=== PATIENT | male | born 1940 | race Caucasian/White ===

== ENCOUNTER 2020-05-30 10:35 | Emergency (ER) | payer MEDICARE, OTHER ==
[~2020-05-30] VITALS: Ht 175.3 cm; Wt 81.2 kg
[~2020-05-30 10:35] MED LIST: ACETAMINOPHEN500 MG PO; ADVAIR 250-501 EACH IH; ADVAIR 250-501 EACH INH; ALBUTEROL2.5 MG/0.5 INH; ALEVE220 MG PO; ALIMTA IV; ANTACID GELATI1 EACH PO; ANUSOL-HC25 MG PR; ASPIR-LOW81 MG PO; ASPIRIN325 MG PO; ATIVAN1 MG PO; ATROVENT HFA12.9 GM INH; BENEFIBER1 EAC1 PO; CALCIUM-MAGNES1 EAC1 PO; CARBOPLATIN150 MG IV; COQ-10100 MG PO; COUMADIN PO; DECADRON4 MG PO; ECHINACEA EXTR125 MG PO; EMEND150 MG IV; EPIDIOLEX100 MG/1 M PO; FENOFIBRATE160 MG PO; FISH OIL 1,2001 EAC1 PO; FISH OIL500 MG PO; FLUTICASONE PRO16 GM NS; FOLIC ACID1 MG PO; GARCINIA CAMBO1 EACH PO; GLUCOSAMINE CH1 EACH PO; GLUCOSAMINE H1500 MG PO; GREEN COFFEE B400 MG PO; KEYTRUDA100 MG/4 M IV; LEVITRA20 MG PO; LOSARTAN-HCTZ1 EAC1 PO; LOVENOX150 MG SUB-Q; MAGNESIUM400 MG PO; METOPROLOL SUC100 MG PO; MILK THISTLE140 M1 PO; MIRALAX17 GM PO; MS CONTIN15 MG PO; NAPROSYN250 MG PO; NORCO 5-325 TA1 EACH PO; OMEPRAZOLE20 MG PO; ONDANSETRO8 MG/50 M2 IV; ONDANSETRON ODT8 MG PO; OXYCODON-ACETA1 EAC2 PO; OXYCODONE HCL5 MG PO; POTASSIUM CHLO10 ME1 PO; PREDNISONE10 MG PO; PROAIR HFA8.5 GM INH; PROMETHAZINE HC25 M1 PO; RASPBERRY MC; SPIRIVA18 MCG IH; SPIRIVA18 MCG INH; ST. JOHN'S WOR300 MG PO; TAMIFLU75 MG PO; TURMERIC500 MG PO; TYLENOL325 MG PO; ULTRAM50 MG PO; VITAMIN E400 UNI5 PO; WARFARIN SODIUM5 MG PO; XARELTO10 MG PO
[2020-05-30] MEDS ORDERED: LOVENOX80 MG/0.8 SUB-Q (14:45)
[2020-05-30] MEDS ORDERED: LOVENOX120 MG/0.8 SUB-Q (14:51)
== END 2020-05-30 14:56 | disposition home or self-care (01) ==
LOC: ED 10:35
DX: T81.31XA Disruption of external operation (surgical) wound, not elsewhere classified, initial encounter (principal); I82.622 Acute embolism and thrombosis of deep veins of left upper extremity; I10 Essential (primary) hypertension; J44.9 Chronic obstructive pulmonary disease, unspecified; Z85.118 Personal history of other malignant neoplasm of bronchus and lung; Z79.899 Other long term (current) drug therapy; Z79.82 Long term (current) use of aspirin
CPT/HCPCS: 71045; 93971; 96372; 99284-25; J1650

== ENCOUNTER 2020-05-31 11:28 | Emergency (ER) | payer MEDICARE, OTHER ==
[~2020-05-31] VITALS: Ht 175.3 cm; Wt 81.2 kg
[~2020-05-31 11:28] MED LIST changes: +LOVENOX120 MG/0.8 SUB-Q; +LOVENOX80 MG/0.8 SUB-Q
--- OUTSIDE RECORDS SUMMARY | 2020-05-31 11:32 | XMS ---
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 Gamal has no Care Guidelines for this patient. Norma VISIT COUNT (12 MO.) [address] [facility] TOTAL 2 NOTE: Visits indicate total known visits. ED/C VISIT TRACKING (12 MO.) 05/31/2020 11:[address] [facility] [place] TYPE: Emergency COMPLAINT: - DRESSING CHANGE 05/30/2020 10:36 [facility] [place] TYPE: Emergency COMPLAINT: - POST OP PROBLEM INPATIENT VISIT TRACKING (12 MO.) No inpatient visits to display in this time frame [id number]
== END 2020-05-31 11:46 | disposition home or self-care (01) ==
LOC: ED 11:28
DX: Z76.0 Encounter for issue of repeat prescription (principal)

== ENCOUNTER 2020-06-01 11:39 | Emergency (ER) | payer MEDICARE, OTHER ==
[~2020-06-01] VITALS: Ht 175.3 cm; Wt 81.2 kg
--- OUTSIDE RECORDS SUMMARY | 2020-06-01 11:42 | XMS ---
PreManage Notification: JANY SCANLON Security Breaker Hand Events No recent Security Events currently on file CRITERIA MET - [facility] - 2 Visits in 30 Days CARE PROVIDERS There are no care providers on record at this time. Gamal has no Care Guidelines for this patient. Norma VISIT COUNT (12 MO.) [address] [facility] TOTAL 3 NOTE: Visits indicate total known visits. ED/C VISIT TRACKING (12 MO.) 06/01/2020 11:40 [facility] [place] TYPE: Emergency COMPLAINT: - MEDICATION REFILL 05/31/2020 11:29 [facility] [place] TYPE: Emergency COMPLAINT: - DRESSING CHANGE 05/30/2020 10:36 [facility] [place] TYPE: Emergency COMPLAINT: - POST OP PROBLEM INPATIENT VISIT TRACKING (12 MO.) No inpatient visits to display in this time frame [id number]
== END 2020-06-01 11:56 | disposition home or self-care (01) ==
LOC: ED 11:39
DX: Z76.0 Encounter for issue of repeat prescription (principal)

== ENCOUNTER 2020-09-06 10:18 | Emergency (ER) | payer MEDICARE, OTHER ==
[~2020-09-06] VITALS: Ht 177.8 cm; Wt 80.7 kg
--- OUTSIDE RECORDS SUMMARY | 2020-09-06 11:50 | XMS ---
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 Norma VISIT COUNT (12 MO.) 4 [facility] Thompson TOTAL 4 NOTE: Visits indicate total known visits. 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 - Personal history of other malignant neoplasm of bronchus and lung - Chronic obstructive pulmonary disease, unspecified - Acute embolism and thrombosis of deep veins of left upper extremity - 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
[2020-09-06] MEDS ORDERED: CEPHALEXIN500 M1 PO (14:19)
== END 2020-09-06 14:35 | disposition home or self-care (01) ==
LOC: ED 10:18
DX: L03.114 Cellulitis of left upper limb (principal); I82.622 Acute embolism and thrombosis of deep veins of left upper extremity; I10 Essential (primary) hypertension; J43.9 Emphysema, unspecified; Z87.891 Personal history of nicotine dependence; Z79.899 Other long term (current) drug therapy; Z79.82 Long term (current) use of aspirin; Z85.118 Personal history of other malignant neoplasm of bronchus and lung
CPT/HCPCS: 80053; 83605; 85025; 93971; 96365; 96366; 99284-25; J0696

== ENCOUNTER 2020-09-30 06:25 | Day surgery (SDC) | payer MEDICARE, OTHER ==
[~2020-09-30] VITALS: Ht 177.8 cm; Wt 77.7 kg
[~2020-09-30 06:25] MED LIST changes: +CEPHALEXIN500 M1 PO; +FISH OIL + D31 EACH PO; +TURMERIC500 M2 PO
--- NOTE | 2020-09-30 08:47 | NUR ---
09/30/20 0847 Elizabeth,Prisca 0828 PT ARRIVED TO PACU ON 10L VIA MASK, RESP EVEN AND UNLABORED WITH ORAL AND NASAL AIRWAY IN MOUTH. VSS. MODERN DANCER AT BEDSIDE AND BP MEDICATION GIVEN. 0831 O2 DECREASED TO 6L. 0837 X-RAY AT BEDSIDE. 0842 PT WAKES TO TACTILE STIMULI AND AIRWAYS REMOVED. PT REORIENTED TO PACU AND EASILY FALLS BACK TO SLEEP.
--- NOTE | 2020-09-30 10:14 | NUR ---
PT ALERT, ORIENTED AND SUPPORTED BY HIS OSIRIS. PT HAS QUIET, RASPY VOICE, BUT ABLE TO UNDERSTAND EASILY. PT WOULD LIKE TO VISIT WITH DR HERNÁNDEZ INFORMED PT HE WILL BE IN BEFORE. PT AND OSIRIS SEEM SATISFIED. PT APPEARS SOMEWHAT ANXIOUS, GAVE ENCOURAGEMENT, PT ALLOWED ME TO PRAY FOR HIM, WILL FOLLOW NEEDED
--- NOTE | 2020-09-30 10:48 | OR ---
[facility] [address], [place] [address] Signed DATE OF OPERATION: 09/30/2020 SURGEON: Jumana Hernández MD PREOPERATIVE DIAGNOSES: Metastatic adenocarcinoma of the lung, left neck and perihilar adenopathy, need for central venous access for chemotherapy. POSTOPERATIVE DIAGNOSES: Metastatic adenocarcinoma of the lung, left neck and perihilar adenopathy, need for central venous access for chemotherapy. PROCEDURES: 1. Ultrasound-guided right internal jugular Port-A-Cath placement (Bard port catheter). 2. Surgeon-directed fluoroscopy. ANESTHESIA: Local with monitored anesthesia care, Jumana Johnson CRNA and local 8 mL of 0.25% Marcaine with epinephrine. INDICATION: This 79-year-old white man is a patient of Dr. Jumana Michel and under the care of Dr. Dominguez for metastatic lung cancer (adenocarcinoma). He has significant mediastinal adenopathy and left-sided neck adenopathy related to the malignancy and biopsy in the area has confirmed the underlying diagnosis. The patient has been undergoing palliative chemotherapy and had some radiation therapy as well, but now needs a Port-A-Cath for ongoing therapy as his peripheral access is diminishing and quite difficult for him. He is admitted at this time to undergo Port-A-Cath placement (Bard port catheter type). He understands the risks of bleeding, infection, pneumothorax, and other unforeseen complications. Understanding this, he wished to proceed. FINDINGS: Ultrasound evaluation of the right neck showed a patent internal jugular vein and normal-appearing carotid artery. Catheter placement was without complication. Good function was noted at conclusion of the procedure. Postoperative chest x-ray in recovery room confirms the tip of the catheter in the superior vena cava. DESCRIPTION OF PROCEDURE: The patient was brought to the operating room and given intravenous sedation. He is placed on a wedge device given his somewhat marginal airway status. He had poor Electronically Signed By: JUMANA HERNÁNDEZ MD 09/30/20 1048 PATIENT NAME: JANY SCANLON OPERATIVE REPORT DATE OF : 42 REPORT #: [id number] PHYSICIAN: JUMANA HERNÁNDEZ MD PCP: BROOKE MICHEL MD REPORT IS CONFIDENTIAL AND NOT TO BE RELEASED WITHOUT AUTHORIZATION [facility] [address], [place] [address] Signed flexibility of his neck, though he could turn slightly to the left. He was placed in mild Trendelenburg position and the upper neck and torso was clipped and prepared with a chlorhexidine solution and draped sterilely. Preoperative antibiotics were given. Sequential compression device stockings were used as well. The patient was on bridge therapy having been treated for deep vein thrombosis of the left upper extremity, likely related to compressive affective adenopathy on that side. Bridge therapy included Lovenox 40 mg subcutaneously. After sterile preparation of the upper abdomen, a SonoSite ultrasound device was used to interrogate the right neck area. This showed the carotid artery and the right jugular vein. A 1% lidocaine was then injected over the site and under direct visualization, the right jugular vein was accessed showing dark nonpulsatile blood. A flexible J-wire was passed down the needle without impediment. Confirmation with the SonoSite device of the needle in the jugular was undertaken. Local anesthesia was injected transversely over the right pectoralis, transverse incision was made and a pocket created using blunt and electrocautery dissection. A port device was partially secured to the pectoralis fascia. The site from which the wire emanated in the neck was incised with an #11 blade and dilated and subsequently dilator and peel-away sheath introducer passed over the wire with subsequent removal of the wire and the dilator. Retrograde dark nonpulsatile bleeding was noted. A previously inspected Bard port catheter, which had been irrigated with heparinized saline solution was passed down the peel-away sheath introducer as far as possible, peel-away sheath introducer removed. The catheter was withdrawn under fluoroscopic control and with various changes to bed position and so forth, ultimately the catheter could be more fully visualized after irrigation of the catheter with some radiocontrast. The catheter was withdrawn to the area of the atriocaval junction initially. Using the tunneling device, the catheter was delivered to the pocket, secured to the port device per manufacture's instructions with the enclosed collar device with appropriate orientation. The port was secured in the pocket more fully with a 2-0 Vicryl suture. Access of the catheter with an angled White needle allowed for easy flushing of heparinized saline and easy withdrawal of blood. Fluoroscopic evaluation showed the catheter to have no kinks or other problems and was well positioned. The pocket was closed with interrupted 2-0 Vicryl and a running subcuticular 3-0 Vicryl. The neck incision was closed with interrupted 3-0 Vicryl, Steri-Strips were applied to both sites. Accessed percutaneously with angled White needle showed easy withdrawal of blood and easy flushing of heparinized saline without problem. The patient was taken to the recovery room in good condition having suffered no complication. A postprocedure chest x-ray was performed in the recovery room showing the catheter tip to be in the Electronically Signed By: JUMANA HERNÁNDEZ MD 09/30/20 1048 PATIENT NAME: JANY SCANLON OPERATIVE REPORT DATE OF : 42 REPORT #: [id number] PHYSICIAN: JUMANA HERNÁNDEZ MD PCP: BROOKE MICHEL MD REPORT IS CONFIDENTIAL AND NOT TO BE RELEASED WITHOUT AUTHORIZATION [facility] [address] [facility] [place], [place] [address] Signed superior vena cava a bit higher than anticipated, likely related to body position change compared to at time of operation. MD LOW Farooq/ANNAL /[id number] cc: MD Brooke Landis MD Copies: SANTA DOMINGUEZ MD, JONATHAN MD ~ Electronically Signed By: JUMANA HERNÁNDEZ MD 09/30/20 1048 PATIENT NAME: JANY SCANLON OPERATIVE REPORT DATE OF : 42 REPORT #: [id number] PHYSICIAN: JUMANA HERNÁNDEZ MD PCP: BROOKE MICHEL MD REPORT IS CONFIDENTIAL AND NOT TO BE RELEASED WITHOUT AUTHORIZATION
== END 2020-09-30 10:00 | disposition home or self-care (01) ==
LOC: OPS 06:25 → DS 06:25 → OPS 06:45
PROVIDERS: ATTEND Surgery
PROC: 0JH63WZ Insertion of Totally Implantable Vascular Access Device into Chest Subcutaneous Tissue and Fascia, Percutaneous Approach (ICD-10-PCS; principal; 2020-09-30 06:45)
DX: C34.12 Malignant neoplasm of upper lobe, left bronchus or lung (principal); C78.01 Secondary malignant neoplasm of right lung; C77.0 Secondary and unspecified malignant neoplasm of lymph nodes of head, face and neck; C77.1 Secondary and unspecified malignant neoplasm of intrathoracic lymph nodes; I10 Essential (primary) hypertension; Z87.891 Personal history of nicotine dependence
CPT/HCPCS: 36415; 71045; 77001; 80053; 83615; 85025; C1788; J0690; J1100; J1644; J1885; J2250; J2405; J2704; J2765; J3010; J7121

== ENCOUNTER 2020-10-25 08:00 | Emergency (ER) | payer MEDICARE, OTHER ==
[~2020-10-25] VITALS: Ht 177.8 cm; Wt 78.9 kg
--- OUTSIDE RECORDS SUMMARY | 2020-10-25 08:02 | XMS ---
PreManage Notification: JANY SCANLON Security Gin Inspector Events No recent Security Events currently on file CRITERIA MET - [facility] CARE PROVIDERS DIRK SerranoALBERTO Internal Medicine: Medical Oncology 09/08/2020-Current [place] PHONE: [phone] BROOKE MONTIEL [facility] 06/02/2020-Current PHONE: [phone] Gamal has no Care Guidelines for this patient. EMeredith VISIT COUNT (12 MO.) Neisha Thompson TOTAL 5 NOTE: Visits indicate total known visits. ED/UCC VISIT TRACKING (12 MO.) 10/25/2020 08:01 [facility] [place] TYPE: Emergency COMPLAINT: - PORT BLEEDING 09/06/2020 10:19 [facility] [place] TYPE: Emergency COMPLAINT: - LT ARM/HAND SWELLING POST CHEMO DIAGNOSES: - Other chcf (current) drug therapy - Personal history of nicotine dependence - Essential (primary) hypertension - Personal history of other malignant neoplasm of bronchus and lung - Emphysema, unspecified - Cellulitis of left upper limb - Acute embolism and thrombosis of deep veins of left upper extremity - penitentiary (current) use of aspirin - Other specified soft tissue disorders 06/01/2020 11:40 [facility] [place] TYPE: Emergency COMPLAINT: - MEDICATION REFILL DIAGNOSES: - Encounter for issue of repeat prescription 05/31/2020 11:29 ANTONIO Dahl TYPE: Emergency COMPLAINT: - DRESSING CHANGE DIAGNOSES: - Encounter for issue of repeat prescription 05/30/2020 10:36 [facility] [place] TYPE: Emergency COMPLAINT: - POST OP PROBLEM DIAGNOSES: - 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 - Personal history of other malignant neoplasm of bronchus and lung - Chronic obstructive pulmonary disease, unspecified - Acute embolism and thrombosis of deep veins of left upper extremity - Other long winder 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
== END 2020-10-25 10:21 | disposition home or self-care (01) ==
LOC: ED 08:00
DX: T82.838A Hemorrhage due to vascular prosthetic devices, implants and grafts, initial encounter (principal); I10 Essential (primary) hypertension; J43.9 Emphysema, unspecified; Z85.118 Personal history of other malignant neoplasm of bronchus and lung; Z87.891 Personal history of nicotine dependence; Z79.899 Other long term (current) drug therapy
CPT/HCPCS: 99283

== ENCOUNTER 2021-06-08 13:34 | Emergency (ER) | payer MEDICARE, OTHER ==
[~2021-06-08] VITALS: Ht 177.8 cm; Wt 76.7 kg
[2021-06-08] MEDS ORDERED: ELIQUIS5 MG PO (13:57)
[2021-06-08] MEDS ORDERED: TRELEGY ELLIPT1 EACH IH (13:59)
[2021-06-08] MEDS ORDERED: DOCUSATE SODIU100 MG PO (13:59)
[2021-06-08] MEDS ORDERED: HYDROCODON-ACE1 EA10 PO (13:59)
[2021-06-08] MEDS ORDERED: LORAZEPAM1 MG PO (14:00)
--- OUTSIDE RECORDS SUMMARY | 2021-06-08 14:18 | XMS ---
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 EMeredith VISIT COUNT (12 MO.) Amy Thompson TOTAL 3 NOTE: Visits indicate total known visits. 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
== END 2021-06-09 14:37 | disposition home or self-care (01) ==
LOC: ED 13:34
DX: C34.90 Malignant neoplasm of unspecified part of unspecified bronchus or lung (principal); I10 Essential (primary) hypertension; J43.9 Emphysema, unspecified; Z87.891 Personal history of nicotine dependence; Z79.51 Long term (current) use of inhaled steroids; Z79.899 Other long term (current) drug therapy
CPT/HCPCS: 80053; 81001; 84443; 85025; 85610; 99285; G0480

== ENCOUNTER 2021-06-27 03:33 | Emergency (ER) | payer MEDICARE, OTHER ==
[~2021-06-27] VITALS: Ht 177.8 cm; Wt 70.3 kg
[~2021-06-27 03:33] MED LIST changes: +DOCUSATE SODIU100 MG PO; +ELIQUIS5 MG PO; +HYDROCODON-ACE1 EA10 PO; +LORAZEPAM1 MG PO; +TRELEGY ELLIPT1 EACH IH
--- OUTSIDE RECORDS SUMMARY | 2021-06-27 03:36 | XMS ---
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 Norma VISIT COUNT (12 MO.) [facility] TOTAL 4 NOTE: Visits indicate total known visits. ED/UCC VISIT TRACKING (12 MO.) 06/27/2021 03:[address] 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 10/25/2020 08:01 [facility] [place] TYPE: Emergency COMPLAINT: - PORT BLEEDING DIAGNOSES: - Other retirement (current) drug therapy - Essential (primary) hypertension - Emphysema, unspecified - Personal history of nicotine dependence - Personal history of other malignant neoplasm of bronchus and lung - Hemorrhage due to vascular prosthetic devices, implants and grafts, initial encounter 09/06/2020 10:19 [facility] [place] TYPE: Emergency COMPLAINT: - LT ARM/HAND SWELLING POST CHEMO DIAGNOSES: - Other retirement (current) drug therapy - Personal history of nicotine dependence - Essential (primary) hypertension - Personal history of other malignant neoplasm of bronchus and lung - Emphysema, unspecified - Cellulitis of left upper limb - Acute embolism and thrombosis of deep veins of left upper extremity - care home (current) use of aspirin - Other specified soft tissue disorders INPATIENT VISIT TRACKING (12 MO.) No inpatient visits to display in this time frame [email or web address]
== END 2021-06-27 06:46 | disposition home or self-care (01) ==
LOC: ED 03:33
DX: R33.9 Retention of urine, unspecified (principal); Z51.5 Encounter for palliative care; C34.90 Malignant neoplasm of unspecified part of unspecified bronchus or lung; K59.03 Drug induced constipation; T40.2X5A Adverse effect of other opioids, initial encounter; I10 Essential (primary) hypertension; J43.9 Emphysema, unspecified; Z87.891 Personal history of nicotine dependence; Z79.899 Other long term (current) drug therapy; Z79.891 Long term (current) use of opiate analgesic
CPT/HCPCS: 51702; 99284-25

== ENCOUNTER 2021-07-08 09:34 | Inpatient (IN) | payer MEDICARE, OTHER ==
[~2021-07-08] VITALS: Ht 177.8 cm; Wt 85.5 kg
[~2021-07-08 09:34] MED LIST changes: -ADVAIR 250-501 EACH IH
--- OUTSIDE RECORDS SUMMARY | 2021-07-08 09:36 | XMS ---
PreManage Notification: JANY SCANLON Security Television Production Assistant Events No recent Security Events currently on file CRITERIA MET - [facility] - [facility] - 2 Visits in 30 Days CARE PROVIDERS SAIRA SerranoALBERTO Internal Medicine: Medical Oncology 09/08/2020-Current [place] PHONE: [phone] BROOKE MONTIEL Family Medicine 06/02/2020-Current PHONE: Unknown [facility] Current PHONE: [phone] Gamal has no Care Guidelines for this patient. E.D. VISIT COUNT (12 MO.) 5 ANTONIO Thompson TOTAL 5 NOTE: Visits indicate total known visits. 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 - Personal history of nicotine dependence - Drug induced constipation 06/08/2021 13:34 [facility] [place] [place] TYPE: Emergency COMPLAINT: - ALTERED LOC DIAGNOSES: - Essential (primary) hypertension - Personal history of nicotine dependence - shelter (current) use of inhaled steroids - Emphysema, unspecified - Malignant neoplasm of unspecified part of unspecified bronchus or lung - Other long-term (current) drug therapy 10/25/2020 08:01 [facility] [place] TYPE: Emergency COMPLAINT: - PORT BLEEDING DIAGNOSES: - 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 - Essential (primary) hypertension - Emphysema, unspecified - Personal history of nicotine dependence - Personal history of other malignant neoplasm of bronchus and lung - Hemorrhage due to vascular prosthetic devices, implants and grafts, initial encounter 09/06/2020 10:19 [facility] [place] TYPE: Emergency COMPLAINT: - LT ARM/HAND SWELLING POST CHEMO DIAGNOSES: - Other long-term (current) drug therapy - Personal history of nicotine dependence - Essential (primary) hypertension - Personal history of other malignant neoplasm of bronchus and lung - Emphysema, unspecified - Cellulitis of left upper limb - Acute embolism and thrombosis of deep veins of left upper extremity - 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
[2021-07-08] MEDS ORDERED: FUROSEMIDE20 MG PO (14:59)
[2021-07-08] MEDS ORDERED: MIRALAX119 GM PO (15:00)
[2021-07-08] MEDS ORDERED: REFRESH TEARS15 ML OPTH (15:01)
[2021-07-08] MEDS ORDERED: MORPHINE SULFAT15 MG PO (15:02)
[2021-07-08] MEDS ORDERED: HYZAAR 100-251 EACH PO (15:04)
[2021-07-08] MEDS ORDERED: METOPROLOL SUC200 MG PO (15:05)
[2021-07-08] MEDS ORDERED: MAGNESIUM OXID420 MG PO (15:07)
[2021-07-08] MEDS ORDERED: ENOXAPARIN120 MG/0.8 SUB-Q (15:09)
--- NOTE | 2021-07-09 18:52 | EKG ---
[facility] [address] [facility] [place] [address] Signed Sinus rhythm with occasional premature ventricular complexes and premature atrial complexes Left axis deviation Right bundle branch block Abnormal ECG When compared with ECG of 13-MAY-2020 14:27, RI interval has decreased Nonspecific T wave abnormality, worse in Lateral leads Confirmed by ROBERT CARLOS MD ([id number]) on 07/09/2021 6:51:58 PM Electronically Signed By: ROBERT CARLOS MD 07/09/211851 PATIENT NAME: JANY SCANLON Electrocardiogram DATE OF : 42 PHYSICIAN: ROBERT CARLOS MD REPORT #: [id number] REPORT IS CONFIDENTIAL AND NOT TO BE RELEASED WITHOUT AUTHORIZATION
== END 2021-07-10 16:05 | disposition home or self-care (01) | DRG 180 ==
LOC: ED 09:34 → MS 13:12
PROVIDERS: ADMIT Internal Medicine; ATTEND Internal Medicine
PROC: 5A09357 Assistance with Respiratory Ventilation, Less than 24 Consecutive Hours, Continuous Positive Airway Pressure (ICD-10-PCS; principal; 2021-07-08)
DX: C34.90 Malignant neoplasm of unspecified part of unspecified bronchus or lung (principal); J96.21 Acute and chronic respiratory failure with hypoxia; J91.0 Malignant pleural effusion; J98.11 Atelectasis; Z20.822 Contact with and (suspected) exposure to COVID-19; Z66 Do not resuscitate; J43.9 Emphysema, unspecified; R33.9 Retention of urine, unspecified; J38.00 Paralysis of vocal cords and larynx, unspecified; I10 Essential (primary) hypertension; Z96.651 Presence of right artificial knee joint; Z96.642 Presence of left artificial hip joint; Z98.890 Other specified postprocedural states; Z79.01 Long term (current) use of anticoagulants; Z99.81 Dependence on supplemental oxygen; Z79.899 Other long term (current) drug therapy; Z86.711 Personal history of pulmonary embolism
CPT/HCPCS: 36415; 51702; 71045; 80053; 80503; 81001; 82803; 83880; 84484; 85025; 93005; 93010; 94640; 94660; 94760; 97163; 99285-25; C9803; J1650; J1940; J2920; U0003